=== PATIENT | female | born 1990 | race Two or more races ===

== ENCOUNTER 2019-01-02 12:34 | Emergency (ER) | payer SELFPAY ==
[~2019-01-02] VITALS: Ht 160 cm; Wt 62.6 kg
[2019-01-02] MEDS ORDERED: ONDANSETRON HCL/PF 4 MG/2 ML VIAL ONE (13:06)
[2019-01-02] MEDS ORDERED: ACETAMINOPHEN ES 500 MG TABLET ONE (13:06)
[2019-01-02] MEDS ORDERED: IV NS 0.9% 1,000 ML BAG IV ONE (13:30)
[2019-01-02] MEDS ORDERED: ONDANSETRON HCL/PF 4 MG/2 ML VIAL IVP ONE (13:30)
[2019-01-02] MEDS ORDERED: ACETAMINOPHEN ES 500 MG TABLET PO ONE (13:30)
[2019-01-02 13:34] VITALS: BP 103/67
== END 2019-01-02 15:22 | disposition home or self-care (01) ==
LOC: ER 12:36
DX: A08.39 Other viral enteritis (principal); R11.2 Nausea with vomiting, unspecified; F41.9 Anxiety disorder, unspecified; R00.2 Palpitations; Z90.89 Acquired absence of other organs; Z88.0 Allergy status to penicillin
CPT/HCPCS: 96361; 96374; 99283; J2405; J7030 ×2